=== PATIENT | female | born 1965 | race Caucasian/White ===

== ENCOUNTER 2017-03-18 07:12 | Day surgery (SDC) | payer BC ==
[~2017-03-18] VITALS: Ht 153.7 cm; Wt 52.0 kg
[2017-03-18 07:41] VITALS: BP 136/88; PULSE 74; TEMP 98.2
[2017-03-18] MEDS ORDERED: DAZIDOX10 MG PO (07:48)
[2017-03-18] MEDS ORDERED: NORCO 325 MG-101 TAB PO (07:49)
[2017-03-18 10:13] VITALS: BP 110/63; PULSE 73; TEMP 97.3
[2017-03-18 10:35] VITALS: BP 103/70; PULSE 58
[2017-03-18 10:50] VITALS: BP 115/69; PULSE 61
[2017-03-18 11:20] VITALS: BP 96/67; PULSE 62
== END 2017-03-18 12:22 | disposition home or self-care (01) ==
LOC: SDCO 07:12
DX: S52.572A Other intraarticular fracture of lower end of left radius, initial encounter for closed fracture (principal); S52.612A Displaced fracture of left ulna styloid process, initial encounter for closed fracture; G56.02 Carpal tunnel syndrome, left upper limb; F17.210 Nicotine dependence, cigarettes, uncomplicated; G89.18 Other acute postprocedural pain; Z88.2 Allergy status to sulfonamides; Z90.710 Acquired absence of both cervix and uterus
CPT/HCPCS: C1713; J0690; J1885; J2250; J2704; J2795; J3010; J7120

== ENCOUNTER 2017-08-21 10:15 | Day surgery (SDC) | payer OTHER ==
[~2017-08-21] VITALS: Ht 152.4 cm; Wt 49.6 kg
[2017-08-21] VITALS (7 sets, daily range): BP systolic 104–119; BP diastolic 69–78; PULSE 53–72; TEMP 97.5–98.3
[~2017-08-21 10:15] MED LIST: DAZIDOX10 MG PO; NORCO 325 MG-101 TAB PO
[2017-08-21] MEDS ORDERED: ROXICODONE 55 MG/TAB PO (11:16)
[2017-08-21] MEDS ORDERED: NORCO 325 MG-7.1 TAB PO (15:27)
== END 2017-08-21 16:45 | disposition home or self-care (01) ==
LOC: SDCO 10:15
DX: M24.632 Ankylosis, left wrist (principal); M67.834 Other specified disorders of tendon, left wrist; F17.210 Nicotine dependence, cigarettes, uncomplicated; S66.912A Strain of unspecified muscle, fascia and tendon at wrist and hand level, left hand, initial encounter; G89.18 Other acute postprocedural pain; Z88.5 Allergy status to narcotic agent; Z90.710 Acquired absence of both cervix and uterus; Z79.891 Long term (current) use of opiate analgesic
CPT/HCPCS: J0690; J1885; J2250; J2704; J2795; J3010; J7120